=== PATIENT | female | born 1945 | race Caucasian/White ===

== ENCOUNTER → 2017-09-02 | Outpatient (CLI) | payer MEDICARE ==
[~2017-09-02] MED LIST: ALPH200C3 PO; ALPH200C4 PO; AMLO5TAB2 PO; APIDINJ INJ; ASPI325T PO; ASPI81TA23 PO; COQ-50CA2 PO; CRANCAP2 PO; EMPA1TAB3 PO; ENOX40P SQ; EXEN1INJ INJ; FERR325T18 PO; GLUC1000 PO; HYDR-2768 PO; IRON325T PO; LANTUS2P SQ; LEVO50TA4 PO; LISI40TA PO; LORTA5 PO; METF1000 PO; MULT-65 PO; PRAV40TA2 PO; SIMV40 PO; TAB-TAB PO; VERA120T3 PO; VITA10002 PO; VITA500015 PO; Z.0.COMMODE-3:1; Z.0.CPM; Z.0.WALKERFRONT
[2017-09-02 09:12] LABS: AUTOMATED NEUTROPHIL # 5.1 TH/MM3 (1.8-7.7); BASOPHIL # 0.1 TH/MM3 (0-0.2); BASOPHIL % 0.8 % (0.0-2.0); EOSINOPHIL # 0.2 TH/MM3 (0-0.4); EOSINOPHIL % 2.8 % (0.0-4.0); HEMOGLOBIN 14.6 GM/DL (11.6-15.3); LYMPH % 18.8 % (9.0-44.0); LYMPHOCYTE # 1.4 TH/MM3 (1.0-4.8); MEAN CELL VOLUME 90.7 FL (80.0-100.0); MEAN CORPUSCULAR HEMOGLOBIN 30.1 PG (27.0-34.0); MEAN CORPUSCULAR HGB CONC 33.2 % (32.0-36.0); MEAN PLATELET VOLUME 9.2 FL (7.0-11.0); MONO % 6.9 % (0.0-8.0); MONOCYTE # 0.5 TH/MM3 (0-0.9); NEUT % 70.7 % (16.0-70.0); PLATELET COUNT 211 TH/MM3 (150-450); RED BLOOD COUNT 4.85 MIL/MM3 (4.00-5.30); RED CELL DISTRIBUTION WIDTH 14.9 % (11.6-17.2); WHITE BLOOD COUNT 7.2 TH/MM3 (4.0-11.0)
[2017-09-02 09:20] LABS: PROTHROMBIN TIME - PATIENT 10.3 SEC (9.8-11.6)
[2017-09-02 09:27] LABS: ALBUMIN 3.8 GM/DL (3.4-5.0); AST (GOT) 7 U/L (15-37); BICARBONATE 24.9 MEQ/L (21.0-32.0); BLOOD UREA NITROGEN 18 MG/DL (7-18); CALCIUM 9.6 MG/DL (8.5-10.1); CHLORIDE 108 MEQ/L (98-107); CREATININE 0.84 MG/DL (0.50-1.00); GLOMERULAR FILTRATION RATE 66 ML/MIN (>89); GLUCOSE,FASTING 159 MG/DL (74-99); SODIUM (NA) 140 MEQ/L (136-145)
[2017-09-02 09:28] LABS: ALT (GPT) 15 U/L (10-53)
[2017-09-02 09:30] LABS: ALKALINE PHOSPHATASE 78 U/L (45-117); TOTAL BILIRUBIN ADULT 0.4 MG/DL (0.2-1.0); TOTAL PROTEIN 7.4 GM/DL (6.4-8.2)
[2017-09-02 09:32] LABS: WESTERGREN SEDIMENTATION RATE 4 mm/hr (0-30)
--- NOTE | 2017-09-02 09:50 | RADRPT ---
EXAM DATE/TIME: 09/02/2017 09:26 [facility] COMPARISON: CHEST PA & LAT, March 03, 2015, 11:43. INDICATIONS : Evaluate for pneumonia, pneumothorax or communicable disease. Pre-op for right total knee replacement . MEDICAL HISTORY : Hypertension. Diabetes mellitus type II. SURGICAL HISTORY : None. ENCOUNTER: Initial ACUITY: 1 day PAIN SCORE: 0/10 LOCATION: Bilateral chest FINDINGS: Redemonstration of a 1 cm nodule in the left lower lobe the. Lungs are otherwise clear. Cardiomedias no contours are within normal limits. Bony thorax is intact. CONCLUSION: 1. Redemonstration of 1 cm nodule in the left lower lobe, potentially slightly enlarged since remote prior exam. Consider outpatient CT examination for further evaluation if this nodule has not been pre viously evaluated. 2. No acute cardiopulmonary disease. Db Arango MD on September 02, 2017 at 9:36 Board Certified Radiologist. This report was verified electronically.
[2017-09-02 10:48] LABS: BACTERIA, URINE RARE /hpf; BILIRUBIN, URINE NEG (NEG); BLOOD, URINE NEG (NEG); GLUCOSE,URINE 1000 mg/dL (NEG); KETONE, URINE NEG (NEG); MUCUS URINE FEW /lpf (OCC); NITRITE,URINE NEG (NEG); SQUAMOUS EPITHELIAL CELL URINE 1 /hpf (0-5); URINE COLOR LIGHT-YELLOW (YELLW/STRAW); URINE LEUKOCYTE ESTERASE NEG (NEG)
--- NOTE | 2017-09-02 19:42 | EKG ---
Date Performed: 09/02/2017 Time Performed: 08:43:32 PTAGE: 72 years EKG: Sinus rhythm WITH SHORT AZ INTERVAL BORDERLINE ECG Since the prior tracing, there has been no significant change PREVIOUS TRACING : 03/03/2015 09.44 DOCTOR: Nick Licea Interpretating Date/Time 09/02/2017 19:42:03
== END ==
LOC: CPRE 08:12
PROVIDERS: ATTEND Orthopaedic Surgery
DX: Z01.812 Encounter for preprocedural laboratory examination (principal); Z01.811 Encounter for preprocedural respiratory examination; Z01.810 Encounter for preprocedural cardiovascular examination; M79.609 Pain in unspecified limb; M25.50 Pain in unspecified joint; M17.11 Unilateral primary osteoarthritis, right knee; Z96.60 Presence of unspecified orthopedic joint implant
CPT/HCPCS: 36415; 71046; 80053; 81001; 85025; 85610; 85652; 85730; 93005

== ENCOUNTER 2017-09-14 05:33 | Inpatient (IN) | payer MEDICARE ==
[~2017-09-14] VITALS: Ht 157.5 cm; Wt 92.8 kg
[~2017-09-14 05:33] MED LIST changes: -ALPH200C3 PO; -APIDINJ INJ; -ASPI325T PO; -ENOX40P SQ; -EXEN1INJ INJ; -GLUC1000 PO; -HYDR-2768 PO; -IRON325T PO; -LORTA5 PO; -SIMV40 PO; -TAB-TAB PO; -VERA120T3 PO; -VITA10002 PO; -VITA500015 PO; -Z.0.COMMODE-3:1; -Z.0.CPM; -Z.0.WALKERFRONT
[2017-09-14] MEDS ORDERED: POVIDONE IODINE 7.5% SCRUB 118 ML BOTTLE TOPICAL SCH (06:30)
[2017-09-14] MEDS ORDERED: ceFAZolin 2 GM PREMIX 50 ML IV SCH (06:30)
[2017-09-14] MEDS ORDERED: VANCOMYCIN 1000 MG/NS 250 ML (for <70 kg) IV SCH ×2 (06:30)
[2017-09-14] MEDS ORDERED: DEXAMETHASONE SOD PHOS 20 MG/5 ML VIAL IV SCH (06:45)
[2017-09-14] MEDS ORDERED: CHLORHEXIDINE GLUCONATE 2 % 1 PACK (2 CLOTHS) TOPICAL PRN (06:45)
[2017-09-14] MEDS ORDERED: METOPROLOL TARTRATE 25 MG TAB PO PRN (06:45)
[2017-09-14] MEDS ORDERED: POVIDONE IODINE 5% (ANTISEPSIS KIT) 4 APPLICATIONS EACH NARE PRN (06:45)
[2017-09-14] MEDS ORDERED: LACTATED RINGER'S 1000 ML IV PRN (06:45)
[2017-09-14] MEDS ORDERED: SODIUM CHLOR 0.9% 250 ML INJ 250 ML ONE (06:52)
[2017-09-14] MEDS ORDERED: MIDAZOLAM HCL 2 MG/2 ML VIAL ONE (06:57)
[2017-09-14] MEDS ORDERED: SODIUM CHLORIDE 0.9% 20 ML VIAL ONE (06:57)
[2017-09-14] MEDS ORDERED: BUPIVACAINE LIPOSOME PF 1.3% 20 ML VIAL ONE (06:58)
[2017-09-14] MEDS ORDERED: GENTAMICIN SULFATE 80 MG/2 ML VIAL ONE (06:59)
[2017-09-14 07:12] VITALS: PULSE 70
[2017-09-14] MEDS ORDERED: ACETAMINOPHEN 1000 MG/100 ML 100 ML IV ONE (07:57)
[2017-09-14] MEDS ORDERED: ROPIVACAINE PERI-ARTICULAR INJECTION. P-ARTICULR SCH ×5 (08:30)
[2017-09-14] MEDS ORDERED: TRANEXAMIC ACID IV SCH ×2 (08:30→11:30)
[2017-09-14] MEDS ORDERED: SODIUM CHLORIDE 0.9% IV SCH ×2 (08:30→11:30)
--- NOTE | 2017-09-14 10:12 | PD.OP ---
cc: Guido Duenas MD Operative Report Date of Surgery: Sep 14, 2017 Preoperative Diagnosis: Right knee severe osteoarthritis Postoperative Diagnosis: Same Procedure: Right total knee arthroplasty Anesthesia: Adductor canal block and general Surgeon: Guido Duenas Engineer Internship(s): PK Espinal The surgical procedure was assisted by my Advanced Registered Nurse Practitioner. My STIFF LEG DERRICK OPERATOR presence was necessary throughout this case for the manipulation and positioning of the surgical extremity. My STIFF LEG DERRICK OPERATOR was assisting me throughout the duration of this procedure. The skill set of an Advance Registered Nurse Practitioner was medically necessary to complete this procedure. During the surgical case, the surgical appliance fitter was working at the back table and the Advance Registered Nurse Practitioner was directly assisting me. Operation and Findings: IMPLANTS: DePuy Attune: Patella: size 32. Femur, posterior stabilized size 5. Tibia, rotating platform size 4. Tibial insert, rotating platform, posterior stabilized size 5 mm thickness. ESTIMATED BLOOD LOSS: 100 cc TOURNIQUET TIME: 37 minutes at 250 mmHg pressure. JUSTIFICATION FOR PROCEDURE: The patient has end-stage osteoarthritis to the knee. There is an attached conservative measures pathway form in the chart that describes the nonoperative measures that were undertaken prior to consideration of surgical management. The patient understood the risks and benefits of surgical management. See my office notes for further details PROCEDURE: The patient was brought back to the operative theatre. Adequate anesthesia was obtained. The patient received intravenous vancomycin and Ancef. The lower extremity was prepped and draped in the usual sterile fashion.The leg was exsanguinated, the tourniquet was raised. A standard anterior incision was performed followed by medial parapatellar arthrotomy was performed. End-stage arthritis was identified. Osteotomy of the patella was performed. We drilled holes for the patella. We trialed the patella component. We placed an intramedullary guide into the distal femur. We ultimately resected 13 mm off of the distal femur in 5 degrees of valgus. The remnants of the ACL and PCL were resected. Osteotomy of the proximal tibia was performed, resecting 6 mm off of the medial side. This was done with 3 degrees of posterior slope using an extramedullary guide. The distal end of the guide was placed in the mid aspect of the ankle. The femur was sized, and four chamfer cuts were completed in 3 of external rotation. We then cut the central box in the distal femur to replace the PCL. We resected the remnants of the menisci and removed osteophytes off of the femur and tibia. We then trialed the knee. We punched the tibia for the keel, and then used standard technique to cement in components. Excess cement was removed. We trialed the knee again and the final polyethylene thickness was chosen to provide extension to 0 degrees, and flexion of 140 degrees to gravity. The ligaments were appropriately balanced. Lateral release was necessary to obtain excellent patellofemoral tracking. The tourniquet was released and adequate hemostasis was obtained. An intra- articular injection of a ropivacaine cocktail was injected. The posterior knee was inspected for excess cement, which was removed. The final polyethylene was put into position after thorough irrigation. We then closed deep fascia with a #2 Stratafix followed by skin with 2-0 Vicryl followed by reji. Postop plan is to weight-bear as tolerated. DVT prophylaxis will be performed with Filemon, ELEAZAR rodgers, early mobilization, and Lovenox followed by aspirin. Guido Duenas MD Sep 14, 2017 10:12
[2017-09-14] MEDS ORDERED: MAGNESIUM HYDROXIDE SUSP 30 ML CUP PO PRN (10:15)
[2017-09-14] MEDS ORDERED: Post-op Orders (for Pharmacy) XX ONE (10:15)
[2017-09-14] MEDS ORDERED: MORPHINE SULFATE 4 MG/ML INJ IV PUSH PRN (10:15)
[2017-09-14] MEDS ORDERED: NALOXONE HCL 0.4 MG/ML AMP IV PUSH PRN (10:15)
[2017-09-14] MEDS ORDERED: ZOLPIDEM TARTRATE 5 MG TAB PO PRN (10:15)
[2017-09-14] MEDS ORDERED: ALUMINUM/MAGNESIUM/SIMETH 30 ML CUP PO PRN (10:15)
[2017-09-14] MEDS ORDERED: BISACODYL 10 MG SUPP RECTAL PRN (10:15)
[2017-09-14] MEDS ORDERED: diphenhydrAMINE HCL 50 MG/ML VIAL IV PUSH PRN (10:15)
[2017-09-14] MEDS ORDERED: ONDANSETRON HCL 4 MG/2 ML VIAL IVP PRN (10:15)
[2017-09-14] MEDS ORDERED: DO NOT ADM ANY ANTICOAGULANT DRUGS PRN (10:37)
[2017-09-14] MEDS ORDERED: *morphine SULFATE 4 MG/ML PERIprocedure ONLY ONE ×2 (10:52→11:18)
--- NOTE | 2017-09-14 11:18 | RADRPT ---
EXAM DATE/TIME: 09/14/2017 10:46 [facility] COMPARISON: No previous studies available for comparison. INDICATIONS : Post op right total knee. MEDICAL HISTORY : Hypertension. Diabetes mellitus type II. SURGICAL HISTORY : None. ENCOUNTER: Initial ACUITY: 1 day PAIN SCORE: 9/10 LOCATION: Right Knee FINDINGS: AP and lateral views of the knee following arthroplasty reveals a prosthesis in anatomic alignment. F racture is not appreciated. Surgical drain is evident CONCLUSION: Status post total knee arthroplasty. Keenan Woods MD FACR Board Certified Radiologist. This report was verified electronically.
[2017-09-14] MEDS ORDERED: NEOSTIGMINE 5 MG/5 ML SYRINGE IV PUSH ONE (12:00)
[2017-09-14] MEDS ORDERED: ROCURONIUM INJ 50 MG/5 ML SYRINGE IV PUSH ONE (12:00)
[2017-09-14] MEDS ORDERED: LIDOCAINE HCL 1% PF 5 ML SYRINGE OTHER ONE (12:00)
[2017-09-14] MEDS ORDERED: PROPOFOL 200 MG/20 ML AMP IV ONE (12:00)
[2017-09-14] MEDS ORDERED: LACTATED RINGER'S 1000 ML INJ 1,000 ML IV ONE (12:00)
[2017-09-14] MEDS ORDERED: GLYCOPYRROLATE 1 MG/5 ML SYRINGE IV PUSH ONE (12:00)
[2017-09-14] MEDS ORDERED: ONDANSETRON HCL 4 MG/2 ML VIAL IV ONE (12:00)
--- NOTE | 2017-09-14 14:46 | HHI.DCPOC ---
Discharge Care Plan Diagnosis: (1) Status post total knee replacement, right (2) Primary localized osteoarthrosis, lower leg Your Health Problems Are: Difficulty with ADL Goals to Promote Your Health * To prevent worsening of your condition and complications * To maintain your health at the optimal level Directions to Meet Your Goals Take your medications as prescribed Follow your dietary instruction Follow activity as directed Keep your appointments as scheduled Take your immunizations and boosters as scheduled If your symptoms worsen call your PCP, if no PCP go to Urgent Care Center or Emergency Room Smoking is Dangerous to Your Health. Avoid second hand smoke Call the 24-hour hour crisis hotline for domestic abuse at Bari Aguilera Sep 14, 2017 14:46
--- NOTE | 2017-09-14 14:47 | HHI.FF ---
Face to Face Verification Diagnosis: (1) Primary localized osteoarthrosis, lower leg (2) Status post total knee replacement, right Physical Therapy Gait training, Transfer training, bed to chair Knee: Total knee Right LE Weight Bearing: WB as tolerated Right LE Range of Motion: Active ROM Nursing Nursing: Ramsey gloria Dressing Changes: Do not change dressing Additional Instructions First dressing change in the office I have seen patient Claudia Fowler on 09/14/17. My clinical findings support the need for the requested home health care services because: Limited ability to care for self High risk of falls I certify that my clinical findings support that this patient is homebound because: Post-op weakness Unsteady gait/balance Bari Aguilera Sep 14, 2017 14:47
[2017-09-14] MEDS ORDERED: WALKER WHEELS/F1 MIS (14:49)
[2017-09-14] MEDS ORDERED: COMMODE 3-IN-11 MIS (14:49)
[2017-09-14] MEDS ORDERED: CPMMACHINE (14:49)
[2017-09-14] MEDS: ACETAMINOPHEN/HYDROcodone 325 MG/5 MG TAB PO PRN ×2 (15:01→21:18)
[2017-09-14] MEDS ORDERED: INSULIN HUMAN REGULAR 1,000 UNITS/10 ML VIAL ONE (15:18)
[2017-09-14] MEDS ORDERED: DEXTROSE 50% IN WATER 50 ML VIAL(D50) IV PUSH PRN (16:15)
[2017-09-14] MEDS ORDERED: GLUCAGON 1 MG/ML VIAL OTHER PRN (16:15)
--- NOTE | 2017-09-14 16:16 | PD.CONS ---
[facility] Reason for Consult Medical management Primary Care Physician Kaykay Coello M.D. Diagnoses: History of Present Illness 72 year-old female with a history of diabetes type 2, severe right knee osteoarthritis who despite medical management including NSAIDs, corticosteroid injection, physical therapy continue to have severe right knee pain affecting her daily living up activity including ambulation. Patient was taken to the operating room today and underwent right total knee arthroplasty. [facility] was consulted for medical management. Patient was seen postoperatively in PACU, denies any chest pain or shortness of breath. Review of Systems Except as stated in HPI: all other systems reviewed are Neg Past Family Social History Allergies: Coded Allergies: tetanus toxoid, adsorbed (Verified Allergy, Severe, SWELLING ARM, 09/02/17) Past Medical History DM type II HTN Hyperlipidemia Left lung nodule, follows up regularly with child and family services specialist Dr. Limon in [place]. Asthma STT on Tuesday for preop, negative Sleep apnea, uses CPAP Kidney stones Hypothyroid Cataracts OA Right finger fracture Past Surgical History Right groin lymph removal 2014 Partial parathyroidectomy Kidney stone removal Finger surgery Left knee repair Reported Medications See EMR Family History Noncontributory Social History Patient denies tobacco, alcohol or easy drug intake Physical Exam Vital Signs Vital Signs Date Time Temp Pulse Resp B/P (MAP) Pulse Ox O2 Delivery O2 Flow Rate FiO2 09/14/17 15:00 75 16 125/60 (81) 94 Room Air 09/14/17 15:00 16 09/14/17 14:00 75 16 125/59 (81) 95 Room Air 09/14/17 13:00 71 16 126/57 (80) 97 Room Air 09/14/17 12:00 75 16 132/57 (82) 94 Room Air 09/14/17 11:45 78 16 116/52 (73) 95 Room Air 09/14/17 11:30 79 16 132/63 (86) 95 Room Air 09/14/17 11:15 79 16 129/60 (83) 99 Nasal Cannula 3 09/14/17 11:00 80 16 136/64 (88) 99 Nasal Cannula 3 09/14/17 10:45 81 16 140/68 (92) 98 Nasal Cannula 3 09/14/17 10:35 99.3 86 16 142/63 (89) 96 Nasal Cannula 3 09/14/17 07:12 70 2/14/18 06:59 98.8 80 20 144/70 (94 95 Physical Exam GENERAL: This is a well-nourished, well-developed patient, in no apparent distress. SKIN: No rashes, ecchymoses or lesions. Cool and dry. HEAD: Atraumatic. Normocephalic. No temporal or scalp tenderness. EYES: Pupils equal round and reactive. Extraocular motions intact. No scleral icterus. No injection or drainage. ENT: Nose without bleeding, purulent drainage or septal hematoma. Throat without erythema, tonsillar hypertrophy or exudate. Uvula midline. Airway patent. NECK: Trachea midline. No JVD or lymphadenopathy. Supple, nontender, no meningeal signs. CARDIOVASCULAR: Regular rate and rhythm without murmurs, gallops, or rubs. RESPIRATORY: Clear to auscultation. Breath sounds equal bilaterally. No wheezes , rales, or rhonchi. GASTROINTESTINAL: Abdomen soft, non-tender, nondistended. No hepato-splenomegaly , or palpable masses. No guarding. MUSCULOSKELETAL: Right knee repair, dressing intact NEUROLOGICAL: Awake and alert. Cranial nerves II through XII intact. Motor and sensory grossly within normal limits. Five out of 5 muscle strength in all muscle groups. Normal speech. Assessment and Plan Assessment and Plan 72-year-old female with Status post right total knee arthroplasty Management per orthopedic surgery Continue current postop care PT consult to treat and eval DVT prophylaxis per orthopedic surgery Diabetes type 2, hyperlipidemia and other chronic medical conditions Resume outpatient medications, start insulin sliding scale DVT prophylaxis: Lovenox Thank you for this consultation Code Status Full code Discussed Condition With Patient, Rafi Smith RN, MD Sep 14, 2017 16:16
[2017-09-14] MEDS: INSULIN ASPART SUPPLEMENTAL SCALE SQ SCH ×2 (17:00→21:00)
[2017-09-14 17:47] VITALS: BP 128/62; PULSE 75; RESP 17; TEMP 97.7; O2SAT 94
[2017-09-14] MEDS: metFORMIN HCL 500 MG TAB PO SCH (18:00)
[2017-09-14] MEDS: SODIUM CHLOR 0.9% 1000 ML INJ 1,000 ML IV SCH (20:08)
[2017-09-14 20:31] VITALS: BP 120/61; PULSE 74; RESP 18; TEMP 98.1; O2SAT 97
[2017-09-14] MEDS ORDERED: INSULIN DETEMIR 100 UNITS/ML VIAL SQ SCH (21:00)
[2017-09-14] MEDS ORDERED: PRAVASTATIN SOD 40 MG TAB PO SCH (21:00)
[2017-09-14] MEDS ORDERED: amLODIPine BESYLATE 5 MG TAB PO SCH (21:00)
[2017-09-15 00:07] VITALS: BP 122/53; PULSE 65; RESP 18; TEMP 98.7; O2SAT 94
[2017-09-15 03:49] VITALS: BP 101/50; PULSE 69; RESP 18; TEMP 98.9; O2SAT 95
[2017-09-15 04:24] LABS: HEMATOCRIT 35.1 % (35.0-46.0); HEMOGLOBIN 11.7 GM/DL (11.6-15.3); MEAN CELL VOLUME 89.5 FL (80.0-100.0); MEAN CORPUSCULAR HEMOGLOBIN 29.9 PG (27.0-34.0); MEAN CORPUSCULAR HGB CONC 33.4 % (32.0-36.0); MEAN PLATELET VOLUME 8.9 FL (7.0-11.0); PLATELET COUNT 196 TH/MM3 (150-450); RED BLOOD COUNT 3.92 MIL/MM3 (4.00-5.30); RED CELL DISTRIBUTION WIDTH 14.3 % (11.6-17.2)
[2017-09-15 04:49] LABS: BICARBONATE 23.6 MEQ/L (21.0-32.0); CALCIUM 7.9 MG/DL (8.5-10.1); CREATININE 0.97 MG/DL (0.50-1.00)
[2017-09-15] MEDS ORDERED: LEVOTHYROXINE SODIUM 50 MCG TAB PO SCH (06:00)
[2017-09-15] MEDS: SODIUM CHLOR 0.9% 1000 ML INJ 1,000 ML IV SCH (06:08)
[2017-09-15] MEDS ORDERED: DEXAMETHASONE SOD PHOS 20 MG/5 ML VIAL IV ONE (07:45)
[2017-09-15 08:00] VITALS: BP 104/55; PULSE 68; RESP 17; TEMP 97.8; O2SAT 95
[2017-09-15] MEDS: INSULIN ASPART SUPPLEMENTAL SCALE SQ SCH (08:00)
[2017-09-15 08:32] VITALS: O2SAT 98
[2017-09-15] MEDS: ACETAMINOPHEN/HYDROcodone 325 MG/5 MG TAB PO PRN ×2 (08:46→13:16)
[2017-09-15] MEDS: metFORMIN HCL 500 MG TAB PO SCH (08:50)
[2017-09-15] MEDS ORDERED: JARDIANCE 25 MG PO SCH (09:00)
[2017-09-15] MEDS ORDERED: LISINOPRIL 20 MG TAB PO SCH (09:00)
[2017-09-15] MEDS ORDERED: ENOXAPARIN SODIUM 40 MG/0.4 ML SYRINGE SQ SCH (10:00)
[2017-09-15 12:00] VITALS: BP 113/56; PULSE 64; RESP 17; TEMP 99.3; O2SAT 91
--- NOTE | 2017-09-15 12:16 | HHI.PR ---
Subjective Remarks Patient seen and examined, No acute event overnight Pain to the right knee currently controlled Patient able to ambulate with assistance of PT Objective Vitals Vital Signs Date Time Temp Pulse Resp B/P (MAP) Pulse Ox O2 Delivery O2 Flow Rate FiO2 09/15/17 08:32 98 21 09/15/17 08:00 97.8 68 17 104/55 (71) 95 09/15/17 03:49 98.9 69 18 101/50 (67) 95 09/15/17 00:07 98.7 65 18 122/53 (76) 94 09/14/17 22:51 Room Air 09/14/17 22:11 18 09/14/17 20:31 98.1 74 18 120/61 (80) 97 09/14/17 17:47 97.7 75 17 128/62 (84) 94 09/14/17 16:50 98.1 71 18 132/60 (84) 96 Room Air 09/14/17 16:00 74 18 128/59 (82) 95 Room Air 09/14/17 15:00 75 16 125/60 (81) 94 Room Air 09/14/17 15:00 16 09/14/17 14:00 75 16 125/59 (81) 95 Room Air 09/14/17 13:00 71 16 126/57 (80) 97 Room Air I/O 09/14/17 09/14/17 09/14/17 09/15/17 09/15/17 09/15/17 06:59 14:59 22:59 06:59 14:59 22:59 Intake Total 1709.28 ml 700 ml 580 ml Output Total 900 ml 1000 ml 1000 ml Balance 809.28 ml -300 ml -420 ml Intake Oral 600 ml 600 ml 480 ml IV Total 1109.28 ml 100 ml 100 ml Output Urine Total 800 ml 1000 ml 1000 ml Estimated Blood Loss 100 ml # Bowel Movements 0 0 Result Diagram: 09/15/17 0355 09/15/17 0355 Imaging Last Impressions Knee X-Ray 09/14/17 1008 Signed Impressions: Service Date/Time: Thursday, September 14, 2017 10:46 - CONCLUSION: Status post total knee arthroplasty. Keenan Woods MD Objective Remarks GENERAL: NAD SKIN: Warm and dry. HEAD: Normocephalic. EYES: No scleral icterus. No injection or drainage. NECK: Supple, trachea midline. No JVD or lymphadenopathy. CARDIOVASCULAR: Regular rate and rhythm without murmurs, gallops, or rubs. RESPIRATORY: Breath sounds equal bilaterally. No accessory muscle use. GASTROINTESTINAL: Abdomen soft, non-tender, nondistended. MUSCULOSKELETAL: No cyanosis, or edema. right knee repair-neurovascular intact BACK: Nontender without obvious deformity. No CVA tenderness. A/P Assessment and Plan 72-year-old female with Status post right total knee arthroplasty Management per orthopedic surgery Continue current postop care PT consult to treat and eval DVT with Lovenox Diabetes type 2, hyperlipidemia and other chronic medical conditions Continue outpatient medications, insulin sliding scale DVT prophylaxis: Rafi Doshi MD Sep 15, 2017 12:16
--- NOTE | 2017-09-15 12:30 | RADRPT ---
EXAM DATE/TIME: 09/15/2017 12:03 [facility] COMPARISON: No previous studies available for comparison. INDICATIONS : Right leg pain. MEDICAL HISTORY : Hypertension. Renal calculi. Hepatitis. Thyroid disease. Bilateral cataracts. Left lung nodule. Sl eep apnea. Gallstones. Diabetes. SURGICAL HISTORY : Right groin inflamed lymph node excised. Right small finger fracture. Bilateral knee replacements. Pa rtial parathyroidectomy. ENCOUNTER: Initial ACUITY: 1 day PAIN SCORE: 4/10 LOCATION: Right leg. TECHNIQUE: Venous ultrasound of the leg was performed from the inguinal ligament to the proximal calf. Real-cong e, color Doppler and spectral tracing, compression and augmentation techniques were used. FINDINGS: There is normal compressibility of the deep venous system from the inguinal region to the proximal ca lf. No echogenic clot is seen in the lumen of the common femoral, femoral, popliteal, and posterior tibial veins. There is a normal response of the venous system to proximal and distal augmentation an d respiration. CONCLUSION: Normal examination. Efren Rich MD on September 15, 2017 at 12:29 Board Certified Radiologist. This report was verified electronically.
--- NOTE | 2017-09-15 12:34 | PD.ORT.PN ---
Subjective Post Op Day #: 1 Subjective Remarks Patient is OOB in chair with c/o pain to the popliteal region of the right knee. Patient has been ambulatory and is requesting to go home today with home health. Objective Vitals Vital Signs Date Time Temp Pulse Resp B/P (MAP) Pulse Ox O2 Delivery O2 Flow Rate FiO2 09/15/17 08:32 98 21 09/15/17 08:00 97.8 68 17 104/55 (71) 95 09/15/17 03:49 98.9 69 18 101/50 (67) 95 09/15/17 00:07 98.7 65 18 122/53 (76) 94 09/14/17 22:51 Room Air 09/14/17 22:11 18 09/14/17 20:31 98.1 74 18 120/61 (80) 97 09/14/17 17:47 97.7 75 17 128/62 (84) 94 09/14/17 16:50 98.1 71 18 132/60 (84) 96 Room Air 09/14/17 16:00 74 18 128/59 (82) 95 Room Air 09/14/17 15:00 75 16 125/60 (81) 94 Room Air 09/14/17 15:00 16 09/14/17 14:00 75 16 125/59 (81) 95 Room Air 09/14/17 13:00 71 16 126/57 (80) 97 Room Air I/O 09/14/17 09/14/17 09/14/17 09/15/17 09/15/17 09/15/17 07:00 15:00 23:00 07:00 15:00 23:00 Intake Total 1829.28 ml 580 ml 580 ml Output Total 900 ml 1000 ml 1000 ml Balance 929.28 ml -420 ml -420 ml Intake Oral 720 ml 480 ml 480 ml IV Total 1109.28 ml 100 ml 100 ml Output Urine Total 800 ml 1000 ml 1000 ml Estimated Blood Loss 100 ml # Bowel Movements 0 0 Result Diagram: 09/15/175 09/15/17 0355 Procedures Right TKA Objective Remarks Patient's dressing is C/D/I. EHL/TA/G intact. Calf is soft with tenderness to the popliteal fossa. 2+ pedal pulse. + SILT. Assessment & Plan Ortho Post Op Day #: 1 Problem List: Assessment and Plan POD #1: Right TKA 1. WBAT RLE 2. Lovenox followed by ASA for DVT prophylaxis 3. Ice to the right knee PRN 4. Stable for discharge home today with home health today if US is negative. 5. F/U in the office with Dr. Duenas and PK Fuentes as previously scheduled. 6. Stat US to the right LE. Bari Aguilera Sep 15, 2017 12:34
[2017-09-15] MEDS ORDERED: DOCUSATE SODIUM 100 MG CAP PO SCH (21:00)
[2017-09-15] MEDS ORDERED: MULTIVITAMINS/MINERALS THERAPEUTIC TAB PO SCH (21:00)
--- NOTE | 2017-09-19 21:24 | HHI.DS ---
Discharge Summary Admission Date Sep 14, 2017 at 05:33 Discharge Date: Sep 15, 2017 Admitting Diagnosis Primary localized OA, lower leg Status post total knee replacement, right Diagnosis: (1) Primary localized osteoarthrosis, lower leg Diagnosis: Principal ICD Codes: M17.10 - Primary localized osteoarthrosis, lower leg Status: Acute (2) Status post total knee replacement, right Diagnosis: Principal ICD Codes: Z96.651 - Presence of right artificial knee joint Procedures Right TKA Brief History This is a 72 year old female patient with severe OA of the right knee CBC/BMP: 09/15/17 0355 09/15/17 0355 PE at Discharge Patient's dressing is C/D/I. EHL/TA/G intact. Calf is soft with tenderness to the popliteal fossa. 2+ pedal pulse. + SILT. Hospital Course The patient was admitted to the hospital for severe OA of the right knee to havre a right TKA. The patient's surgery went well without complication. The patient is WBAT on the RLE. The patient is on a diabetic diet. The patient is on Lovenox followed by ASA for DVT prophylaxis. The patient was discharged home with home health. The patient will f/u in the office with Dr. Duenas or PK Fuentes as previously scheduled. Pt Condition on Discharge: Stable Discharge Disposition: Disch w/ Home Health Serv Discharge Instructions Diet Instructions: As Tolerated, No Restrictions, Diabetic Diet Activities You Can Perform: Weight Bearing as Nandini Activities to Avoid: Strenuous Activity Follow up Referrals: Orthopedics with Guido Duenas MD New Medications: Commode 3-in-1 (Commode 3-in-1) 1 Mis Mis EA .XX DIRECTED, #1 0 Refills CPM-Continuous Passive Motion Machine (CPM-Continuous Passive Motion Machine) 1 Ea Device EA .XX DIRECTED, #1 0 Refills Walker with Front Wheels (Walker with Front Wheels) 1 Mis Mis EA .XX DIRECTED, #1 0 Refills Continued Medications: Alpha Lipoic Acid (Alpha Lipoic Acid) 200 Mg Cap 200 MG PO noon for Nutritional Supplement, CAP 0 Refills Amlodipine (Amlodipine) 5 Mg Tab 5 MG PO HS for Blood Pressure Management, #30 TAB 0 Refills Empagliflozin (Jardiance) 25 Mg Tab 25 MG PO DAILY for Blood Sugar Management, #30 TAB 0 Refills Ferrous Sulfate (Ferrous Sulfate) 325 Mg (65 Mg Iron) Tablet 325 MG PO noon for Nutritional Supplement, #30 TAB 0 Refills Insulin Glargine Inj (Lantus Inj) 1,000 Unit/10 Ml Vial 60 UNITS SQ HS for Blood Sugar Management, VIAL 0 Refills Levothyroxine (Levothyroxine) 50 Mcg Tab 50 MCG PO DAILY for Thyroid, #30 TAB 0 Refills Lisinopril (Lisinopril) 40 Mg Tab 40 MG PO DAILY for Blood Pressure Management, #30 TAB 0 Refills Metformin (Metformin) 1,000 Mg Tab 1000 MG PO BIDPC for Blood Sugar Management, #60 TAB 0 Refills Multiple Vitamin (Multi-Vitamin Daily) 1 Tab Tab 1 TAB PO noon for Nutritional Supplement, TAB 0 Refills Pravastatin (Pravastatin) 40 Mg Tab 40 MG PO HS for Cholesterol Management, #30 TAB 0 Refills Discontinued Medications: Aspirin DR (Aspirin EC) 81 Mg Tabdr 81 MG PO HS, TAB 0 Refills Coenzyme Q10 (Ubidecarenone) (Coq-10) 50 Mg Cap 1 CAP PO noon Vitamins C & E (Cranberry Urinary Comfort) 1 Cap 1 CAP PO noon for Urinary Symptom Managemen, CAP 0 Refills Bari Aguilera Sep 19, 2017 21:24
== END 2017-09-15 14:45 | disposition home health service (06) | DRG 470 ==
LOC: HSDI 05:33 → N06A 17:26
PROVIDERS: ADMIT Orthopaedic Surgery; ATTEND Orthopaedic Surgery
PROC: 3E0T3BZ Introduction of Anesthetic Agent into Peripheral Nerves and Plexi, Percutaneous Approach (ICD-10-PCS; 2017-09-14)
PROC: 0SRC0J9 Replacement of Right Knee Joint with Synthetic Substitute, Cemented, Open Approach (ICD-10-PCS; principal; 2017-09-14 08:15)
DX: M17.11 Unilateral primary osteoarthritis, right knee (principal); E11.9 Type 2 diabetes mellitus without complications; I10 Essential (primary) hypertension; E78.5 Hyperlipidemia, unspecified; R91.1 Solitary pulmonary nodule; E03.9 Hypothyroidism, unspecified; G47.30 Sleep apnea, unspecified; J45.909 Unspecified asthma, uncomplicated; H26.9 Unspecified cataract; Z79.4 Long term (current) use of insulin; Z87.442 Personal history of urinary calculi
CPT/HCPCS: 73560; 80048; 82948; 85027; 86850; 86900; 86901; 93971; 94150; C1776; C9290; J0131; J0690; J0735; J1100; J1580; J1650; J1815; J1885; J2250; J2270; J2405; J2710; J2795; J3010; J3370; J7050; J7120; L1830